=== PATIENT | female | born 2000 | race Caucasian/White ===

== ENCOUNTER → 2022-04-13 21:35 | Observation (INO) ==
[~2022-04-13 21:35] MED LIST: Ringers Solution, Lactated 1,000 ML IVC ONE
== END | disposition home or self-care (01) ==
LOC: 1NENULAB
PROVIDERS: ADMIT Student in an Organized Health Care Education/Training Program; ATTEND Student in an Organized Health Care Education/Training Program

== ENCOUNTER 2022-04-23 03:34 | Inpatient (IN) ==
[2022-04-23 03:08] LABS: Basophils # 0.1 K/mcL (0.0-0.2); Basophils % 0.2 %; Hematocrit 39.6 % (35.3-44.9); Hemoglobin 13.2 g/dL (11.5-15.4); Immature Granulocytes % 0.8 % (0-4); Lymphocytes # 1.4 K/mcL (0.6-4.6); Lymphocytes % 6.1 %; Mean Corpuscular HGB Conc 33.3 g/dL (31.6-35.5); Mean Corpuscular Hemoglobin 27.6 pg (28.0-33.3); Mean Corpuscular Volume 82.7 fL (83.0-100.0); Mean Platelet Volume 10.1 fL (9.4-12.4); Monocytes % 4.6 %; Neutrophils # 19.6 K/mcL (1.6-8.9); Platelet Count 255 K/mcL (140-400); Red Blood Count 4.79 M/mcL (3.82-4.97); Red Cell Distribution Width 14.2 % (11.5-14.5); Segmented Neutrophils % 88.3 %; White Blood Count 22.2 K/mcL (4.3-11.1)
[~2022-04-23 03:34] MED LIST changes: +*HR* Nalbuphine 10 MG/ML AMPUL IM ONE; +*HR* Promethazine 25 MG/ML VIAL IM ONE; +Azithromycin 500 MG in 0.9 % Sodium Chloride 250 ML IVPB PRN; +Famotidine 20 MG/2 ML VIAL IVP PRN; +Fluconazole 150 MG TABLET PO ONE; +Metoclopramide 10 MG/2 ML VIAL IVP PRN; +Naloxone 0.4 MG/ML INJ IVP PRN; -Ringers Solution, Lactated 1,000 ML IVC ONE; +Ringers Solution, Lactated 1,000 ML IVC SCH
[2022-04-23] MEDS ORDERED: *HR* FentaNYL (PF) 100 MCG/2 ML VIAL EP ONE (03:38)
[2022-04-23] MEDS ORDERED: Naloxone 0.4 MG/ML INJ IVP PRN (03:38)
[2022-04-23] MEDS ORDERED: Ondansetron 4 MG/2 ML VIAL IVP PRN (03:38)
[2022-04-23] MEDS ORDERED: EPHEDrine 50 MG/ML VIAL IVP PRN (03:38)
[2022-04-23] MEDS ORDERED: Ropivacaine/PF 0.2% 20 ML VIAL EP ONE (03:38)
[2022-04-23] MEDS ORDERED: Epidural Premix (fent/bupiv) 110 ML EP SCH (03:45)
[2022-04-23] MEDS ORDERED: Ropivacaine/PF 0.2% 20 ML VIAL ONE (03:47)
[2022-04-23] MEDS ORDERED: Oxytocin 30 UNIT/503 ML BAG IVC SCH (08:30)
[2022-04-23] MEDS ORDERED: OXYTOCIN/RINGERS LACTATE 10 UNIT/166.6 ML BAG IVC ONE (10:56)
[2022-04-23] MEDS ORDERED: Rho Immune Globulin 1,500 UNIT SYRINGE IM PRN (10:56)
[2022-04-23] MEDS ORDERED: Benzocaine/Menthol 56 GM AEROSOL SPRAY TP PRN (10:56)
[2022-04-23] MEDS ORDERED: Measles/Mumps/Rubella Vacc 0.5 ML VIAL SQ PRN (10:56)
[2022-04-23] MEDS ORDERED: Lanolin 7 G OINT...G. TP PRN (10:56)
[2022-04-23] MEDS ORDERED: Ondansetron ODT 4 MG TAB.RAPDIS SL PRN (10:56)
[2022-04-23] MEDS: Acetaminophen 325 MG TABLET PO SCH ×2 (13:45→20:57)
[2022-04-23] MEDS: Ibuprofen 600 MG TABLET PO SCH (20:57)
[2022-04-23] MEDS: valACYclovir 500 MG TABLET PO SCH (20:58)
[2022-04-23 21:05] VITALS: O2SAT 98
[2022-04-24 04:06] LABS: White Blood Count 15.2 K/mcL (4.3-11.1)
[2022-04-24 04:07] LABS: Basophils % 0.2 %; Eosinophils # 0.1 K/mcL (0.0-0.6); Eosinophils % 0.7 %; Immature Granulocytes % 0.9 % (0-4); Lymphocytes # 2.9 K/mcL (0.6-4.6); Lymphocytes % 18.9 %; Mean Corpuscular HGB Conc 33.2 g/dL (31.6-35.5); Mean Corpuscular Hemoglobin 27.8 pg (28.0-33.3); Mean Corpuscular Volume 83.6 fL (83.0-100.0); Mean Platelet Volume 10.1 fL (9.4-12.4); Monocytes % 6.8 %; Platelet Count 218 K/mcL (140-400); Red Blood Count 3.71 M/mcL (3.82-4.97); Red Cell Distribution Width 14.6 % (11.5-14.5); Segmented Neutrophils % 72.5 %
[2022-04-24 04:09] LABS: Hemoglobin 10.3 g/dL (11.5-15.4)
[2022-04-24] MEDS: Acetaminophen 325 MG TABLET PO SCH ×2 (06:23→12:23)
[2022-04-24] MEDS: Ibuprofen 600 MG TABLET PO SCH ×2 (06:23→12:24)
[2022-04-24 07:11] VITALS: BP 135/83; PULSE 104; TEMP 97.9
[2022-04-24] MEDS: valACYclovir 500 MG TABLET PO SCH (08:15)
[2022-04-24] MEDS ORDERED: Prenatal Vit/FA 1 EACH TABLET PO SCH (09:00)
== END 2022-04-24 13:23 | disposition home or self-care (01) | DRG 560 ==
LOC: 1NENULAB → 1NENUOBS 12:59
PROVIDERS: ADMIT Obstetrics & Gynecology; ATTEND Obstetrics & Gynecology